=== PATIENT | female | born 1945 | race African-American/Black ===

== ENCOUNTER 2023-02-18 23:51 | Emergency (ER) | payer OTHER ==
[~2023-02-18] VITALS: Ht 167.6 cm; Wt 84.0 kg
[2023-02-18 23:59] VITALS: O2SAT 100
[2023-02-19] MEDS ORDERED: ONDANSETRON HCL 4MG/2ML INJ IV STA (00:01)
[2023-02-19] MEDS ORDERED: SODIUM CHLORIDE 0.9% 500 ML IV ONE (00:15)
[2023-02-19 00:51] LABS: CHLORIDE 102 mEq/L (98-107); INDEX HEMOLYSI 1 (1-3); INDEX ICTERIC 1 (1-4); INDEX LIPEMIC 1 (1-3); SODIUM 139 mEq/L (136-145)
[2023-02-19 00:55] LABS: BASOPHILS % 0.2 % (0.0-2.0); EOSINOPHILS % 0.1 % (0.0-5.0); HEMATOCRIT. 27.5 % (36.0-48.0); HEMOGLOBIN. 9.2 g/dL (12.0-16.0); LYMPHOCYTES % 30.4 % (20.0-50.0); MEAN CORPUSCULAR HEMOGLOBIN 32.5 pg (28.0-32.0); MEAN CORPUSCULAR HGB CONC 33.2 g/dL (31.0-37.0); MEAN CORPUSCULAR VOLUME 97.8 fL (81.0-99.0); MEAN PLATELET VOLUME 8.7 fl (7.4-10.4); MONOCYTES % 11.9 % (2.0-8.0); NEUTROPHILS % 57.4 % (40.0-76.0); PLATELET 93 x1000/uL (130-400); RED BLOOD CELL COUNT 2.82 mill/uL (4.2-5.4); RED CELL DISTRIBUTION WIDTH 31.4 % (11.6-14.6)
[2023-02-19 01:01] LABS: ALANINE AMINOTRANSFERASE 42 IU/L (13-61); ALBUMIN 2.4 g/dL (3.4-5.0); ASPARTATE AMINOTRANSFERASE 86 IU/L (15-37); BILIRUBIN TOTAL 1.4 mg/dL (0.1-1.0); CARBON DIOXIDE 24 mEq/L (21-32); CREATININE 0.6 mg/dL (0.6-1.3); GLUCOSE 129 mg/dL (70-105); PROTEIN TOTAL 5.9 g/dL (6.0-8.3); TROPONIN I HIGH SENSITIVITY 26 ng/L (<54); UREA NITROGEN BLOOD 8 mg/dL (7-21)
[2023-02-19 01:05] LABS: POTASSIUM 2.8 mEq/L (3.5-5.1)
[2023-02-19 01:50] LABS: DIFFERENTIAL COMMENT 1
[2023-02-19 01:51] LABS: ADD RBC MORPHOLOGY YES; ANISOCYTOSIS 1+; PLATELET ESTIMATE DECREASED; TARGET CELLS 1+
[2023-02-19] MEDS ORDERED: KCL 10MEQ/50ML PREMIX 50 ML IV ONE (02:00)
[2023-02-19 02:02] LABS: INR 1.5
[2023-02-19 03:42] LABS: TROPONIN I HIGH SENSITIVITY 27 ng/L (<54)
[2023-02-19 05:26] LABS: CLARITY URINE CLOUDY (CLEAR); COLOR URINE DARK YELLOW (YELLOW); GLUCOSE URINE NEGATIVE (NEGATIVE); KETONES URINE 1+ (NEGATIVE); LEUKOCYTE ESTERASE URINE 2+ (NEGATIVE); NITRITE URINE NEGATIVE (NEGATIVE); OCCULT BLOOD URINE NEGATIVE (NEGATIVE); PROTEIN URINE 1+ (NEGATIVE); SPECIFIC GRAVITY URINE 1.032 (1.005-1.030)
[2023-02-19 05:58] LABS: BACTERIA URINE 1+; RBC URINE 0-2 /hpf (0-2); SQUAMOUS EPITHELIAL CELL URINE 1+ /lpf (RARE/1+); YEAST URINE 2+
[2023-02-19 08:20] VITALS: BP 109/54; PULSE 92; RESP 12; TEMP 98.6
[2023-02-19] MEDS ORDERED: ACETAMINOPHEN 325MG TABLET PO ONE (08:30)
[2023-02-19] MEDS ORDERED: ONDANSETRON HCL 4MG/2ML INJ IV ONE (08:45)
== END 2023-02-19 08:55 | disposition short-term general hospital (02) ==
LOC: ER 23:51
DX: C25.9 Malignant neoplasm of pancreas, unspecified (principal); T45.1X5A Adverse effect of antineoplastic and immunosuppressive drugs, initial encounter; K85.90 Acute pancreatitis without necrosis or infection, unspecified; Z88.0 Allergy status to penicillin; X58.XXXA Exposure to other specified factors, initial encounter; Y93.89 Activity, other specified; Y92.89 Other specified places as the place of occurrence of the external cause; Y99.8 Other external cause status
CPT/HCPCS: 99285; 96374; 96361; 87426; 80053; 81003; 83690; 85025; 85610; 84484; 36415; 93005; 96376; J2405; J3480; J7030; C9803